=== PATIENT | male | born 1970 | race Caucasian/White ===

== ENCOUNTER 2024-08-01 07:28 | Day surgery (SDC) | payer OTHER, SELFPAY ==
--- NOTE | 2024-08-01 07:00 | P.OP_ITS ---
Procedure Note - Detailed Date of Procedure 08/01/24 Pre-op Diagnosis Dupuytren's Contracture LT Ring and Middle Finger Post-op Diagnosis Same Procedure Performed left middle and ring finger fasciectomy Surgeon Eh Harris MD Director Of Kids [facility] Anesthesia MAC Description of Procedure INFORMED CONSENT: The patient was seen and examined and marked in the pre-op area.? The patient signed the consent form. PROCEDURE IN DETAIL:The patient taken back to OR on the stretcher in supine position. Time out performed with anesthesia, surgeon and staff agreeing on patient's name site and surgery to be performed SCDs were placed on the lower extremities and inflated. A tourniquet was placed on {left} upper extremity and antibiotics given IV After anesthesia administered sedation I injected {7}cc 1%lido and 0.5% marcaine plain at the operative site The?{left upper extremity}?was prepped and draped in sterile fashion the??{left upper extremity} was? exsanguinated with Esmarch bandage and tourniquet inflated to 250mmHg My attention 1st to the left ring finger were proceeded with making a longitudinal incision over the cord from the palm proximal to the distal palmar crease going distally with a 15 blade scalpel through skin and dermis. The incision was made obliquely over flexion creases. I elevated the skin flaps with 15 blade scalpel. The origin the cord was identified in the palm proximally. I used Littler scissors to circumferentially dissect around the cord. The cord was transected and then I proceeded with anterograde dissection of the cord until is able to achieve full extension of the MP and PIP joint. A 3rd neurovascular bundles were protected throughout the procedure. I irrigated with normal saline and closed with 4-0 chromic. Next I took my attention to the left middle finger were proceed with making a Katerina incision over the cord and painful nodule over the proximal phalanx through skin and dermis with a 15 blade scalpel Littler scissors were used to elevate skin flaps. Spreading through subcutaneous tissue identified the cord originating around the MP joint flexion crease and proceed with antegrade dissection of this cord and nodule. The neurovascular bundle was protected throughout the procedure. I was not able to achieve full extension of the MP and PIP joint. I irrigated with normal saline and closure with 4-0 chromic. A dressing of xeroform, 4x4, angelina, and a volar splint was applied for patient safety, security, and comfort and secured with an cassia bandage after the tourniquet was let down noting the hand was warm and well perfused. The patient was then awaken from anesthesia and transferred to the recovery room in stable condition.? Complications - none EBL- 0cc Disposition - home in stable conditions [facility] was essential for positioning, retraction, closure and dressing placement [facility] [place] - Charge Forward: Surgery Billing ([id number] same for eder liu )
--- NOTE | 2024-08-01 07:00 | PM.HPGS ---
History of Present Illness History of Present Illness Chief complaint: Dupuytren's Contracture LT Ring and Middle Finger Narrative: Patient seen and examined in pre-operative holding area. No interval change in medical history or symptoms. Patient recalls previous discussion of benefits and alternatives to procedure. Continues to desire to proceed with left middle and ring finger fasciectomy. Reviewed procedure, post-op expectations and risks including but not limited to bleeding, infection, injury to tendon/nerve/vessel, decreased hand function, stiffness, RSD, no change or worsening of symptoms, recurrence, incomplete release. I discussed the possible use of assistants and their participation in the case. Patient stated understanding and signed the consent form wishing to proceed. Review of Systems Review of Systems: All systems reviewed & are unremarkable except as noted in HPI and below [facility] Social History Social History (Updated 04/15/24 @ 14:25 by Lydia Ferguson MA) Smoking status: Former smoker Substance use type: does not use Do You Feel Safe in your Home?: Yes Lack of Transportation: No Lack of Food: Never True Current Housing: I Have Housing Concerned About Future Housing: No Difficulty Paying Gas/Electric Bills: No Difficulty Paying for Meds: No Currently Unemployed: No Education: High School Diploma/GED Difficulty w/ Childcare or Family Care: No Living arrangements: with family Meds Home Medications and Allergies Home Medications Medication Instructions Recorded Confirmed Type albuterol sulfate 90 mcg/actuation 1 puff inhalation DIRECTED 07/19/24 08/01/24 History aerosol inhaler tramadol 50 mg tablet 50 mg PO Q6H PRN pain #12 tabs 08/01/24 Rx Allergies Allergy/AdvReac Type Severity Reaction Status Date / Time No Known Allergies Allergy Verified 08/01/24 08:27 Exam Narrative: unchanged Assessment and Plan Assessment and plan (1) Dupuytren contracture: Code(s): M72.0 - Palmar fascial fibromatosis [Dupuytren] Status: Acute Assessment and Plan: cont as above
[2024-08-01 08:35] VITALS: BP 134/87; PULSE 72; RESP 20; TEMP 36.8; O2SAT 98; BMI 35.6
--- NOTE | 2024-08-01 08:48 | P.PNAN_ITS ---
Anes - Initial Pre Proc Eval Procedure: Operation Date: 08/01/24 09:45 Proposed Procedures p Fasciectomy Left Ring and Middle Finger - Eh Harris MD Date/Time: 08/01/24 08:48 Surgeon: Eh Harris MD Pre Op Diagnosis: Dupuytren's Contracture LT Ring and Middle Finger Patient Data Age: 54 Gender: M Height: 1.83 m Weight: 119.3 kg Last Vital Signs Temp 36.8 C 08/01/24 08:35 Pulse 72 08/01/24 08:35 Resp 20 08/01/24 08:35 BP 134/87 08/01/24 08:35 Pulse Ox 98 08/01/24 08:35 O2 Del Method Room Air 08/01/24 08:35 Allergies Allergy/AdvReac Type Severity Reaction Status Date / Time No Known Allergies Allergy Verified 08/01/24 08:27 Home Medications Medication Instructions Recorded Confirmed Type albuterol sulfate 90 mcg/actuation 1 puff inhalation DIRECTED 07/19/24 1 10/01/23 History aerosol inhaler tramadol 50 mg tablet 50 mg PO Q6H PRN pain #12 tabs 08/01/24 Rx Patient hx anesthesia problems: none Family hx anesthesia problems: none Results Review: All pre-operative results and documents have been reviewed as part of the pre- operative evaluation. [facility] Past Medical History Medical History Asthma Social History Social History Smoking status: Former smoker Substance use type: does not use Do You Feel Safe in your Home?: Yes Lack of Transportation: No Lack of Food: Never True Current Housing: I Have Housing Concerned About Future Housing: No Difficulty Paying Gas/Electric Bills: No Difficulty Paying for Meds: No Currently Unemployed: No Education: High School Diploma/GED Difficulty w/ Childcare or Family Care: No Living arrangements: with family Anes - Eval Final PreProcedure Day of Procedure 08/01/24 08:48 Patient weight: obese Heart: regular rate and rhythm Lungs: clear to auscultation Airway: Mallampati scale (sotelo) class II Neurological: alert and oriented Last oral intake: >/= 8 hours ASA classification: II Emergent: no Anesthetic plan: proceed Anesthesia type and monitoring: general GIVS and standard monitoring Results Review: All pre-operative results and documents have been reviewed as part of the pre- operative evaluation. Informed Consent: The patient's anesthetic plan and its attendant risks and benefits were discussed with the patient/family/POA. Questions were solicited and answers provided to the satisfaction of the patient/family/POA.
[2024-08-01] MEDS: LACTATED RINGERS 1,000 ML 30 ML IV CONT (08:56)
[2024-08-01] MEDS: LIDOCAINE HCL 1% LOCAL INJ 20 ML VIAL 5 ML INFILTRATE (09:01)
[2024-08-01] MEDS: ceFAZolin SODIUM 2 GM/20 ML SW SYRINGE IV PUSH (09:01)
[2024-08-01] MEDS: BUPivacaine HCL 0.5% PF 30 ML VIAL 5 ML INFILTRATE (09:05)
[2024-08-01] MEDS: BACITRACIN ZINC OINTMENT 0.9 GRAM PACKET 1 PACKET TOPICAL (09:27)
[2024-08-01 09:49] VITALS: BP 88/68; PULSE 66; RESP 16; O2SAT 94
[2024-08-01 10:00] VITALS: BP 104/83; PULSE 68; RESP 18; O2SAT 95
[2024-08-01 10:20] VITALS: BP 117/64; PULSE 70; RESP 20; O2SAT 98
--- NOTE | 2024-08-01 10:25 | WPDANESPN ---
Anes - Prog Note Post-Op Date/Time: 08/01/24 10:25 Cardiovascular status: normal Respiratory status: normal Airway patency: baseline Mental status: baseline Post-Op hydration status: normal Vital Signs: Last Vital Signs Temp 36.8 C 08/01/24 08:35 Pulse 68 08/01/24 10:00 Resp 18 08/01/24 10:00 BP 104/83 08/01/24 10:00 Pulse Ox 95 08/01/24 10:00 O2 Del Method Room Air 08/01/24 10:00 Pain Score (VAS): 0/10 I/O: Intake & Output 07/31/24 08/01/24 08/01/24 23:59 07:59 15:59 Intake Total 100 Balance 100 Post-procedural complaints: none Patient Feedback: Patient satisfied with anesthetic care.
== END 2024-08-01 10:27 | disposition home or self-care (01) ==
PROVIDERS: PCP Family Medicine; Visit Provider Plastic Surgery
PROC: (CPT 26045; principal; 2024-08-01 09:45)
DX: M72.0 Palmar fascial fibromatosis [Dupuytren] (principal)
CPT/HCPCS: 26123; 26125

== ENCOUNTER 2024-08-01 13:58 | Outpatient (NON) | payer OTHER, SELFPAY | END 2024-08-01 13:59 | disposition home or self-care (01) | PROVIDERS: PCP Family Medicine; Visit Provider Plastic Surgery | DX: M72.0 Palmar fascial fibromatosis [Dupuytren] (principal) | CPT/HCPCS: 88304 ==